=== PATIENT | male | born 1980 | race Caucasian/White ===

== ENCOUNTER 2016-04-12 08:27 | Emergency (ER) | payer OTHER ==
[~2016-04-12] VITALS: Ht 167.6 cm; Wt 86.0 kg
[~2016-04-12 08:27] MED LIST: ERGO50000 PO; METF500 PO
[2016-04-12 08:32] VITALS: BP 132/91; PULSE 88; RESP 17; TEMP 97.6; O2SAT 99
[2016-04-12] MEDS ORDERED: CYCL1TAB29 PO (09:08)
[2016-04-12] MEDS ORDERED: CITA10TA4 PO (09:09)
[2016-04-12] MEDS ORDERED: ERGO1CAP10 PO (09:09)
[2016-04-12] MEDS ORDERED: METF500T PO (09:09)
--- NOTE | 2016-04-12 09:09 | PD ---
HPI Chief Complaint: Back/ Neck Pain or Injury Time Seen by Provider: 08:53 Travel History International Travel<30 days: No Contact w/Intl Traveler<30days: No Traveled to known affect area: No History of Present Illness HPI This 35-year-old male is complaining of lower back pain. Pain is in the midline of the lower back. In going on for couple of days. He does not recall any direct accident. The pain is better when he sits and tries to move around increased. There is no radiation of the pain down the legs. He has not had any fever or chills. He does have a history of diabetes. 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") Psychiatric: No Reproductive: No Respiratory: No Immunizations Current: Yes Thyroid Disease: No Past Surgical History AICD: No Body Medical Devices: INTRACRANIAL SHUNT Joint Replacement: No Neurologic Surgery: Yes (SHUNT PLACED IN BRAIN A ) Oral Surgery: Yes (DENTAL EXTRACTIONS) Pacemaker: No Social History Alcohol Use: No Tobacco Use: No (06-28-14) Substance Use: No Allergies-Medications (Allergen,Severity, Reaction): Coded Allergies: Codeine (Verified Allergy, Intermediate, Rash, 04/12/16) Reported Meds & Prescriptions Reported Meds & Active Scripts Active Reported Vitamin D / Drisdol 50,000 Units (Ergocalciferol) 50,000 Units Cap 1 Cap PO Q7D Glucophage 500 mg (Metformin HCl) 500 Mg Tab 500 Mg PO BIDPC Review of Systems General / Constitutional: No: Fever, Chills Eyes: No: Diploplia, Blurred Vision HENT: No: Headaches, Vertigo Cardiovascular: No: Chest Pain or Discomfort, Palpitations Respiratory: No: Cough, Shortness of Breath Gastrointestinal: No: Vomiting, Diarrhea Genitourinary: No: Urgency, Frequency Musculoskeletal: Positive: Pain Skin: No Rash, No Itching Neurologic: No: Weakness, Sensory Disturbance Physical Exam Narrative GENERAL well-developed male SKIN: Warm and dry. There is a jason on his left leg HEAD: Atraumatic. Normocephalic. EYES: Pupils equal and round. No scleral icterus. No injection or drainage. ENT: No nasal bleeding or discharge. Mucous membranes pink and moist. MUSCULOSKELETAL: No obvious deformities. No clubbing. No cyanosis. No edema. There is no midline tenderness of the lower back. He has good strength in plantar and dorsiflexion of the feet. Patellar reflexes are equal. Sensation of the legs NEUROLOGICAL: Awake and alert. No obvious cranial nerve deficits. Motor grossly within normal limits. Normal speech. PSYCHIATRIC: Appropriate mood and affect; insight and judgment normal. Data Data Last Documented VS Vital Signs Date Time Temp Pulse Resp B/P Pulse Ox O2 Delivery O2 Flow Rate FiO2 04/12/16 08:32 97.6 88 17 132/91 99 MDM Medical Decision Making Medical Screen Exam Complete: Yes Emergency Medical Condition: Yes Medical Record Reviewed: Yes Differential Diagnosis Differential includes back pain, HNP, musculoskeletal pain Narrative Course There are no neurologic deficits or red flags for this gentleman. I have recommended that he take ibuprofen or Aleve for pain. I will also prescribe Flexeril. He will be put off work for 2 days Diagnosis Primary Impression: Back pain Qualified Code: M54.5 - Acute midline low back pain without sciatica Departure Forms: Tests/Procedures, Work Release Enter return to work date: Apr 15, 2016 Scripts Cyclobenzaprine (Flexeril)10 Mg Tab10 Mg PO TID #20 TAB Ref 0 Prov:Tal Sargent MD 04/12/16 Disposition: 01 DISCHARGE HOME Condition: Stable Tal Sargent MD Apr 12, 2016 09:09
== END 2016-04-12 09:49 | disposition home or self-care (01) ==
LOC: PHEFT 08:27
DX: M54.5 Low back pain (principal); E11.9 Type 2 diabetes mellitus without complications; Z79.1 Long term (current) use of non-steroidal anti-inflammatories (NSAID)
CPT/HCPCS: 99283

== ENCOUNTER 2016-11-10 15:29 | Emergency (ER) | payer OTHER ==
[~2016-11-10] VITALS: Ht 165.1 cm; Wt 89.9 kg
[~2016-11-10 15:29] MED LIST changes: +CITA10TA4 PO; +CYCL1TAB29 PO; +ERGO1CAP10 PO; -ERGO50000 PO; -METF500 PO; +METF500T PO
[2016-11-10 15:34] VITALS: BP 135/70; PULSE 116; RESP 16; TEMP 100.5; O2SAT 96
[2016-11-10 15:44] VITALS: BP 152/78; PULSE 118; RESP 22; TEMP 100.2; O2SAT 94
[2016-11-10] MEDS ORDERED: METF1000 PO (15:50)
[2016-11-10] MEDS ORDERED: METF500T PO (15:50)
[2016-11-10] MEDS ORDERED: ATOR20TA15 PO (15:50)
[2016-11-10] MEDS ORDERED: SODIUM CHLOR 0.9% 1000 ML INJ 1,000 ML IV ONE ×2 (16:09)
--- NOTE | 2016-11-10 16:14 | PD ---
HPI Chief Complaint: Cold / Flu Symptoms Time Seen by Provider: 16:08 Travel History International Travel<30 days: No Contact w/Intl Traveler<30days: No Traveled to known affect area: No History of Present Illness HPI 36-year-old male presents with cough, body aches, fever and general ill feeling since yesterday. He states that he took a cold medicine but he is not sure what it was. He states he took this before coming here. He had his Him a picture of the box while we were talking and it's ingredient list included Tylenol 325 mg and guaifenesin. He denies other concurrent complaints. He denies specific sick contacts. 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 He states in fact he doesn't need prophylactic antibiotics with dental work for it anymore. Quality is achy. Severity is all over. Duration is since yesterday. He feels worse with movement. He denies other modifying factors. 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) Oral Surgery: Yes (DENTAL EXTRACTIONS) Pacemaker: No Other Surgery: Yes (hernia repair) Social History Alcohol Use: No Tobacco Use: Yes (E CIGS) Substance Use: No Allergies-Medications (Allergen,Severity, Reaction): Coded Allergies: codeine (Unverified Allergy, Intermediate, Rash, 11/10/16) Reported Meds & Prescriptions Reported Meds & Active Scripts Active Reported Atorvastatin (Atorvastatin Calcium) 20 Mg Tab 20 Mg PO HS Metformin (Metformin HCl) 500 Mg Tab 500 Mg PO DAILY@1600 With a meal Metformin (Metformin HCl) 1,000 Mg Tab 1,000 Mg PO DAILY With a meal Review of Systems Except as stated in HPI: all other systems reviewed are Neg Physical Exam Narrative GENERAL: Well-nourished, well-developed patient. SKIN: Warm and dry. HEAD: Normocephalic and atraumatic. EYES: No injection or drainage. ENT: No nasal drainage noted. NECK: Supple, trachea midline. CARDIOVASCULAR: Regular rate and rhythm RESPIRATORY: Breath sounds equal bilaterally. No accessory muscle use. GASTROINTESTINAL: Abdomen soft, non-tender, nondistended. EXTREMITIES: No edema. NEUROLOGICAL: Awake and alert. Motor and sensory grossly within normal limits. Normal speech. Data Data Last Documented VS Vital Signs Date Time Temp Pulse Resp B/P (MAP) Pulse Ox O2 Delivery O2 Flow Rate FiO2 11/10/16 17:47 99.6 110 18 125/71 (89) 98 Room Air Orders Orders Complete Blood Count With Diff (11/10/16 16:09) Comprehensive Metabolic Panel (11/10/16 16:09) Prothrombin Time / Inr (Pt) (11/10/16 16:09) Act Partial Throm Time (Ptt) (11/10/16 16:09) Lactic Acid Sepsis Protocol (11/10/16 16:09) Magnesium (Mg) (11/10/16 16:09) Phosphorus (Po4) (11/10/16 16:09) Urinalysis - C+S If Indicated (11/10/16 16:09) Influenzae A/B Antigen (11/10/16 16:09) Blood Culture (11/10/16 16:09) Chest, Pa & Lat (11/10/16 16:09) Blood Glucose (11/10/16 16:09) Ecg Monitoring (11/10/16 16:09) Iv Access Insert/Monitor (11/10/16 16:09) Oximetry (11/10/16 16:09) Ibuprofen (Motrin) (11/10/16 16:15) Sodium Chlor 0.9% 1000 Ml Inj (Ns 1000 M (11/10/16 16:09) Sodium Chlor 0.9% 1000 Ml Inj (Ns 1000 M (11/10/16 16:09) Labs Laboratory Tests Test 11/10/16 16:25 11/10/16 17:44 White Blood Count 8.2 TH/MM3 Red Blood Count 4.72 MIL/MM3 Hemoglobin 14.4 GM/DL Hematocrit 43.4 % Mean Corpuscular Volume 92.1 FL Mean Corpuscular Hemoglobin 30.6 PG Mean Corpuscular Hemoglobin Concent 33.2 % Red Cell Distribution Width 12.1 % Platelet Count 155 TH/MM3 Mean Platelet Volume 9.0 FL Neutrophils (%) (Auto) 80.9 % Lymphocytes (%) (Auto) 6.0 % Monocytes (%) (Auto) 11.5 % Eosinophils (%) (Auto) 0.8 % Basophils (%) (Auto) 0.8 % Neutrophils # (Auto) 6.6 TH/MM3 Lymphocytes # (Auto) 0.5 TH/MM3 Monocytes # (Auto) 0.9 TH/MM3 Eosinophils # (Auto) 0.1 TH/MM3 Basophils # (Auto) 0.1 TH/MM3 CBC Comment DIFF FINAL Differential Comment Prothrombin Time 10.7 SEC Prothromb Time International Ratio 1.0 RATIO Activated Partial Thromboplast Time 25.9 SEC Blood Urea Nitrogen 13 MG/DL Creatinine 1.00 MG/DL Random Glucose 163 MG/DL Total Protein 7.1 GM/DL Albumin 3.6 GM/DL Calcium Level 8.8 MG/DL Phosphorus Level 2.4 MG/DL Magnesium Level 1.9 MG/DL Alkaline Phosphatase 63 U/L Aspartate Amino Transf (AST/SGOT) 21 U/L Alanine Aminotransferase (ALT/SGPT) 39 U/L Total Bilirubin 0.6 MG/DL Sodium Level 136 MEQ/L Potassium Level 3.6 MEQ/L Chloride Level 104 MEQ/L Carbon Dioxide Level 22.0 MEQ/L Anion Gap 10 MEQ/L Estimat Glomerular Filtration Rate 85 ML/MIN Lactic Acid Level 1.4 mmol/L Urine Collection Type CATH Urine Color YELLOW Urine Turbidity CLEAR Urine pH 6.5 Urine Specific Sims 1.027 Urine Protein NEG mg/dL Urine Glucose (UA) 100 mg/dL Urine Ketones NEG mg/dL Urine Occult Blood TRACE Urine Nitrite NEG Urine Bilirubin NEG Urine Leukocyte Esterase NEG Urine RBC 0-3 /hpf Urine WBC 0-2 /hpf Microscopic Urinalysis Comment CULT NOT INDICATED MDM Medical Decision Making Medical Screen Exam Complete: Yes Emergency Medical Condition: Yes Medical Record Reviewed: Yes (past history confirmed) Interpretation(s) Last 24 hours Impressions Chest X-Ray 11/10/16 1608 Signed Impressions: Service Date/Time: Thursday, November 10, 2016 16:24 - CONCLUSION: No acute disease. As Gayathri Ward MD CBC & BMP Diagram 11/10/16 16:25 Total Protein 7.1, Albumin 3.6, Calcium Level 8.8, Phosphorus Level 2.4 L, Magnesium Level 1.9, Alkaline Phosphatase 63, Aspartate Amino Transf (AST/SGOT) 21, Alanine Aminotransferase (ALT/SGPT) 39, Total Bilirubin 0.6 Urine without signs of infection Differential Diagnosis Pneumonia, URI, UTI Narrative Course Given tachycardia and fever here with history of diabetes, Will check blood work , urinalysis, chest x-ray and dose with IV fluids and Motrin and reevaluate Temperature is coming down and heart rate has improved after fluids and Motrin. Patient has no leukocytosis, lactate is normal, no bacterial signs of infection on exam,Patient denies any new complaints and states that they are feeling better. Patient happy with care, all questions answered. Patient knows that follow up is incumbent on them and to return to the emergency room immediately if new or worsening symptoms develop. Patient given strict return precautions, vitals reviewed and are normal, agrees to further workup as an outpatient with supportive care. Diagnosis Primary Impression: Fever Qualified Codes: R50.9 - Fever, unspecified Patient Instructions: General Instructions Additional Instructions: Return as needed, follow with primary Saturday, alternate Tylenol and Motrin Med/Other Pt SpecificInfo: No Change to Meds Disposition: 01 DISCHARGE HOME Condition: Stable Leydi Campo MD Nov 10, 2016 16:14
[2016-11-10] MEDS ORDERED: IBUPROFEN 600 MG TAB PO ONE (16:15)
[2016-11-10 16:29] LABS: AUTOMATED NEUTROPHIL # 6.6 TH/MM3 (1.8-7.7); BASOPHIL # 0.1 TH/MM3 (0-0.2); BASOPHIL % 0.8 % (0.0-2.0); EOSINOPHIL # 0.1 TH/MM3 (0-0.4); EOSINOPHIL % 0.8 % (0.0-4.0); HEMATOCRIT 43.4 % (39.0-51.0); HEMO FLAGS DIFF FINAL; LYMPHOCYTE # 0.5 TH/MM3 (1.0-4.8); MEAN CELL VOLUME 92.1 FL (80.0-100.0); MEAN CORPUSCULAR HEMOGLOBIN 30.6 PG (27.0-34.0); MEAN CORPUSCULAR HGB CONC 33.2 % (32.0-36.0); MONO % 11.5 % (0.0-8.0); NEUT % 80.9 % (16.0-70.0); PLATELET COUNT 155 TH/MM3 (150-450); RED BLOOD COUNT 4.72 MIL/MM3 (4.50-5.90); RED CELL DISTRIBUTION WIDTH 12.1 % (11.6-17.2); WHITE BLOOD COUNT 8.2 TH/MM3 (4.0-11.0)
[2016-11-10 16:38] LABS: CHLORIDE 104 MEQ/L (98-107); POTASSIUM 3.6 MEQ/L (3.5-5.1); SODIUM (NA) 136 MEQ/L (136-145)
--- NOTE | 2016-11-10 16:39 | RADRPT ---
EXAM DATE/TIME: 11/10/2016 16:24 [facility] COMPARISON: No previous studies available for comparison. INDICATIONS : Cough, fever, short of breath MEDICAL HISTORY : None. SURGICAL HISTORY : shunt ENCOUNTER: Initial ACUITY: 2 days PAIN SCORE: 3/10 LOCATION: Bilateral chest FINDINGS: PA and lateral views of the chest demonstrate the lungs to be symmetrically aerated without evidence of mass, infiltrate or effusion. The cardiomediastinal contours are unremarkable. Osseous structure s are intact. CONCLUSION: No acute disease. As Gayathri Ward MD on November 10, 2016 at 16:36 Board Certified Radiologist. This report was verified electronically.
[2016-11-10 16:42] LABS: ANION GAP 10 MEQ/L (5-15); BLOOD UREA NITROGEN 13 MG/DL (7-18); MAGNESIUM 1.9 MG/DL (1.5-2.5)
[2016-11-10 16:44] LABS: APTT (PATIENT) 25.9 SEC (24.3-30.1); PROTHROMBIN TIME - PATIENT 10.7 SEC (9.8-11.6)
[2016-11-10 16:45] LABS: ALT (GPT) 39 U/L (12-78); AST (GOT) 21 U/L (15-37); GLOMERULAR FILTRATION RATE 85 ML/MIN (>89)
[2016-11-10 16:47] VITALS: O2SAT 98
[2016-11-10 16:47] LABS: TOTAL BILIRUBIN ADULT 0.6 MG/DL (0.2-1.0)
[2016-11-10 16:48] LABS: ALKALINE PHOSPHATASE 63 U/L (45-117)
[2016-11-10 17:47] VITALS: BP 125/71; PULSE 110; RESP 18; TEMP 99.6; O2SAT 98
[2016-11-10 17:49] LABS: GLUCOSE,URINE 100 mg/dL (NEG); KETONE, URINE NEG (NEG); NITRITE,URINE NEG (NEG); PH, URINE 6.5 (5.0-8.5)
[2016-11-10 17:50] LABS: BLOOD, URINE TRACE (NEG)
[2016-11-10 17:54] LABS: COMMENT (UR) CULT NOT INDICATED; CULTURE IF INDICATED CULT NOT INDICATED; METHOD OF COLLECTION CATH; RBC, URINE 0-3 /hpf (0-3); URINE COLOR YELLOW (YELLW/STRAW); WBC, URINE 0-2 /hpf (0-5)
== END 2016-11-10 18:24 | disposition home or self-care (01) ==
LOC: PHED 15:29
DX: R50.9 Fever, unspecified (principal); R05 Cough; R00.0 Tachycardia, unspecified; R06.02 Shortness of breath; E11.9 Type 2 diabetes mellitus without complications; Z79.84 Long term (current) use of oral hypoglycemic drugs
CPT/HCPCS: 71020; 80053; 81001; 83605; 83735; 84100; 85025; 85610; 85730; 87040; 87804; 96360; 96361; 99284; J7030